=== PATIENT | female | born 1955 | race Caucasian/White ===

== ENCOUNTER 2018-02-04 18:20 | Emergency (ER) | payer BC ==
--- NOTE | 2018-02-04 19:13 | EDPHY ---
H & P Time Seen by Provider: 02/04/18 18:26 HPI/ROS: CHIEF COMPLAINT: Sore throat, earache HISTORY OF PRESENT ILLNESS: Patient states on Monday she developed left earache and sore throat. She has been hanging out with her grand kids who have been ill with fever and pneumonia. States that she has had a cough"forever". She denies fever. She denies shortness of breath. The cough has gotten a little bit worse over the last 24 hr. She states that she had some drainage from her left ear on Monday night. No nausea, vomiting, diarrhea. REVIEW OF SYSTEMS: Contents of 10 point review of systems otherwise negative except for what is mentioned in HPI. General Appearance: Alert, no distress. Eyes: Pupils equal and round no pallor or injection. ENT, Mouth: Mucous membranes moist. Left ear with evidence of recent perforation, some effusion. Right ear with effusion and no erythema. Respiratory: There are no retractions, lungs are clear to auscultation. Cardiovascular: Regular rate and rhythm. Gastrointestinal: Abdomen is soft and nontender, no masses, bowel sounds normal. Neurological: Awake and alert, cranial nerves intact. Skin: Warm and dry, no rashes. Musculoskeletal: Neck is supple nontender. Extremities are symmetrical, full range of motion, no edema. Psychiatric: Patient is oriented X 3, there is no agitation. Medical/surgical history: Hypothyroid, hypertension. Social history: Nonsmoker, occasional ETOH. Smoking Status: Never smoked Constitutional: Initial Vital Signs Temperature (C) 36.9 C 02/04/18 18:36 Heart Rate 95 02/04/18 18:36 Respiratory Rate 16 02/04/18 18:36 Blood Pressure 182/100 H 02/04/18 18:36 O2 Sat (%) 97 02/04/18 18:36 O2 Delivery Mode Room Air Allergies/Adverse Reactions: No Known Allergies Allergy (Verified 02/04/18 18:36) Home Medications: Medication Instructions Recorded Levothyroxine [Synthroid 200 mcg 200 mcg PO DAILY06 02/23/13 (RX)] Cholecalciferol Vit D3 [Vitamin D3 6,000 units PO DAILY@1200 03/09/17 2000 units tab (OTC)] Herbals/Supplements -Info Only 1 ea PO DAILY 03/09/17 Lisinopril [Zestril 10 mg (*)] 10 mg PO DAILY@1000 05/04/17 Amoxicillin 500 mg PO TID 10 Days tab.chew 02/04/18 Medical Decision Making Differential Diagnosis: Differential diagnosis includes but is not limited to strep pharyngitis, otitis media, sinusitis, pneumonia, other upper respiratory infection. Patient nontoxic, afebrile, rapid strep negative. Evidence of perforation to left TM and bilateral effusions present. Will treat for otitis media. Discussed other treatments [id number]. Stable for discharge. - Data Points Laboratory Results: 02/04/18 02/04/18 Unknown 18:32 Group A Strep Screen NEGATIVE (NEGATIVE) Group A Strep DNA Pending Departure - Departure Clinical Impression: Acute otitis media Qualifiers: Otitis media type: unspecified Qualified Code(s): H66.90 - Otitis media, unspecified, unspecified ear Pharyngitis Qualifiers: Pharyngitis/tonsillitis etiology: unspecified etiology Qualified Code(s): J02.9 - Acute pharyngitis, unspecified Condition: Good Instructions: Ear Infection (ED) Additional Instructions: Antibiotics as discussed. Take pseudoephedrine [id number] to decrease congestion prior to flying. Ibuprofen and Tylenol for pain. Referrals: Deisy Wells MD [Primary Care Provider] - As per Instructions Prescriptions: Amoxicillin 500 mg PO TID 10 Days tab.chew
[2018-02-04] MEDS ORDERED: ACETAMINOPHEN 500 MG TAB PO ONE (19:16)
[2018-02-04 19:32] VITALS: BP 182/92; PULSE 77; RESP 15; TEMP 98.2; O2SAT 91
== END 2018-02-04 19:37 | disposition home or self-care (01) ==
LOC: CED 18:20
DX: J02.9 Acute pharyngitis, unspecified (principal); H66.91 Otitis media, unspecified, right ear; I10 Essential (primary) hypertension
CPT/HCPCS: 87880-PO